=== PATIENT | male | born 1960 | race Caucasian/White ===

== ENCOUNTER 2022-03-19 01:10 | Day surgery (SDC) | payer BC, SELFPAY ==
[2022-03-03 12:54] VITALS: BMI 25.1
[2022-03-19 07:30] VITALS: BP 175/97; PULSE 72; RESP 18; TEMP 36.2; O2SAT 100; BMI 25.2
[2022-03-19] MEDS: LACTATED RINGERS 1,000 ML 150 ML IV CONT (08:00)
--- NOTE | 2022-03-19 08:47 | WPDANESEPPF ---
Anes - Initial Pre Proc Eval Procedure: Operation Date: 03/19/22 09:00 Proposed Procedures p Screening Colonoscopy - Cedric Yousif MD Date/Time: 03/19/22 08:47 Surgeon: Cedric Yousif MD Pre Op Diagnosis: hx of colon polyps, neoplasm screening Patient Data Age: 61 Gender: M Height: 1.78 m Weight: 79.7 kg Last Vital Signs Temp 97.1 F L 03/19/22 07:30 Pulse 72 03/19/22 07:30 Resp 18 03/19/22 07:30 BP 175/97 H 03/19/22 07:30 Pulse Ox 100 03/19/22 07:30 O2 Del Method Room Air 03/19/22 07:30 Allergies Allergy/AdvReac Type Severity Reaction Status Date / Time No Known Allergies Allergy Verified 03/19/22 07:43 Home Medications Medication Instructions Recorded Confirmed Type peg 3350-electrolytes 236 240 ml PO Q10M #4,000 mL 01/28/22 03/19/22 Rx gram-22.74 gram-6.74 gram-5.86 gram solution (Golytely) omeprazole 20 mg tablet,delayed 20 mg PO DAILY 03/03/22 03/19/22 History release Patient hx anesthesia problems: none Family hx anesthesia problems: none Results Review: All pre-operative results and documents have been reviewed as part of the pre-operative evaluation. [facility] Social History Social History Smoking status: Never smoker Alcohol intake: never Substance use: never Substance use type: does not use Living arrangements: with family Spiritual care concerns: No Anes - Eval Final PreProcedure Day of Procedure 03/19/22 08:47 Patient weight: normal Heart: regular rate and rhythm Lungs: clear to auscultation Airway: Mallampati scale class II Neurological: alert and oriented Last oral intake: >/= 8 hours ASA classification: II Emergent: no Anesthetic plan: proceed Anesthesia type and monitoring: general GIVS and standard monitoring Results Review: All pre-operative results and documents have been reviewed as part of the pre-operative evaluation. Informed Consent: The patient's anesthetic plan and its attendant risks and benefits were discussed with the patient/family/POA. Questions were solicited and answers provided to the satisfaction of the patient/family/POA.
--- NOTE | 2022-03-19 08:47 | PM.HPGS ---
History of Present Illness History of Present Illness Consent: Risks, benefits, and alternatives have been discussed and questions answered. Patient agrees to proceed with procedure. Chief complaint: hx of colon polyps, neoplasm screening Narrative: Nathaniel Patel is a 61 year old male with colon polyp in 2017 Review of Systems Constitutional: Constitutional: Denies headache(s) and Denies weakness Eyes: Eyes: Denies blurry vision ENT: Reports Normal hearing present, Denies headache(s) and Denies neck pain Cardiovascular: Cardiovascular: Denies chest pain and Denies dyspnea Respiratory: Respiratory: Denies dyspnea Gastrointestinal: Gastrointestinal: Reports no additional gastrointestinal complaints Genitourinary: Genitourinary: Denies dysuria Musculoskeletal: Musculoskeletal: Denies neck pain Integumentary/Breasts: Skin/Breast: Denies dry skin Neurologic: Reports Normal hearing present, Denies headache(s) and Denies weakness Psychiatric: Psychiatric: Denies anxiety Endocrine: Endocrine: Denies change in body appearance Hematologic/Lymphatic: Hematologic/Lymphatic: Denies easy bleeding Allergic/Immunologic: Allergic/Immunologic: Denies urticaria PMFSH Past Medical History Medical History (Updated 03/19/22 @ 08:47 by Cedric Yousif MD) Adenomatous colon polyp Social History Social History Smoking status: Never smoker Alcohol intake: never Substance use: never Substance use type: does not use Living arrangements: with family Spiritual care concerns: No Meds Home Medications and Allergies Home Medications Medication Instructions Recorded Confirmed Type peg 3350-electrolytes 236 240 ml PO Q10M #4,000 mL 01/28/22 03/19/22 Rx gram-22.74 gram-6.74 gram-5.86 gram solution (Golytely) omeprazole 20 mg tablet,delayed 20 mg PO DAILY 03/03/22 03/19/22 History release Allergies Allergy/AdvReac Type Severity Reaction Status Date / Time No Known Allergies Allergy Verified 03/19/22 07:43 Vital Signs Vital Signs - 24 hr 03/19/22 07:30 Temperature 97.1 F L Pulse Rate 72 Respiratory Rate 18 Blood Pressure 175/97 H Pulse Oximetry 100 Oxygen Delivery Room Air Exam Const: General: comfortable and no acute distress HENMT: General nose exam: Normal nares present Eyes: General: appearance normal, both eyes and all related structures Neck: Neck: no JVD Resp: Auscultation: clear to auscultation bilaterally Cardio: Rate: regular rate Rhythm: regular rhythm GI: Inspection: non-distended GI Palp: Yes Soft to palpation Skin: General skin exam: normal color Neuro: General: gait normal Speech: normal speech Extrem: General: normal to inspection Psych: Mental Status: mental status grossly normal Assessment and Plan Assessment and plan (1) Adenomatous colon polyp: Code(s): D12.6 - Benign neoplasm of colon, unspecified Status: Acute Assessment and Plan: colonoscopy
[2022-03-19 09:11] VITALS: BP 88/40; PULSE 71; RESP 16; O2SAT 95
[2022-03-19 09:21] VITALS: BP 113/64; PULSE 76; RESP 16; O2SAT 94
[2022-03-19 09:31] VITALS: BP 137/88; PULSE 65; RESP 18; O2SAT 98
== END 2022-03-19 09:42 | disposition home or self-care (01) ==
PROVIDERS: PCP Internal Medicine; Visit Provider Internal Medicine Gastroenterology
PROC: 0DJD8ZZ Inspection of Lower Intestinal Tract, Via Natural or Artificial Opening Endoscopic (ICD-10-PCS; CPT 45378; principal; 2022-03-19 09:00)
DX: Z12.11 Encounter for screening for malignant neoplasm of colon (principal); D12.2 Benign neoplasm of ascending colon; K57.30 Diverticulosis of large intestine without perforation or abscess without bleeding; K64.8 Other hemorrhoids
CPT/HCPCS: 45385; 88305; J2704; J7120